=== PATIENT | female | born 1950 | race Caucasian/White ===

== ENCOUNTER 2024-01-27 15:31 | Inpatient (IN) | payer MEDICARE ==
[2024-01-27] MEDS ORDERED: Morphine 4 MG/ML VIAL ONE (15:46)
[2024-01-27 16:02] LABS: #Basophils 0.04 10x3/uL (0.0-0.2); %Basophils 0.5 % (0.0-1.0); %Lymphocytes 20.8 % (21.0-51.0); %Monocytes 8.8 % (0.0-10.0); %Neutrophils 67.4 % (42.0-75.0); Hemoglobin 13.8 g/dL (12.0-16.0); Mean Corpuscular HGB CONC 34.5 g/dL (32.0-36.0); Mean Corpuscular Hemoglobin 31.6 pg (27.0-31.0); Mean Corpuscular Volume 91.5 fL (78.0-98.0); Mean Platelet Volume 12.9 fL (7.4-10.4); Platelet Count 181 10x3/uL (130-400); RBC Distribution Width 12.5 % (11.5-14.5); Red Blood Cell (RBC) Count 4.37 mill/uL (4.20-5.40)
[2024-01-27 16:14] LABS: ALT (SGPT) 21 U/L (8-55); AST (SGOT) 25 U/L (5-34); Albumin 3.6 g/dL (3.4-4.8); Alkaline Phosphatase 45 U/L (40-110); Anion Gap 20 mmol/L (10-20); BUN (Urea Nitrogen) 24 mg/dL (9.8-20.1); Bilirubin, Total 0.3 mg/dL (0.2-1.2); Calc. Creatinine Clearance 0 mL/min (70-130); Calcium 9.7 mg/dL (7.8-10.44); Carbon Dioxide 19 mmol/L (23-31); Chloride 105 mmol/L (98-107); Estimated GFR 52; Glucose 209 mg/dL (83-110); Potassium 4.6 mmol/L (3.5-5.1); Protein, Total 7.6 g/dL (5.8-8.1); Sodium 139 mmol/L (136-145)
[2024-01-27 16:20] LABS: INR-International Normal Ratio 1.1; PTT 27.5 sec (22.9-36.1); Prothrombin Time 14.1 sec (12.0-14.7)
[2024-01-27] MEDS ORDERED: Morphine 2 MG/ML VIAL SLOW IVP PRN (16:22)
[2024-01-27] MEDS ORDERED: Glucagon 1 MG/ML KIT IM PRN (16:22)
[2024-01-27] MEDS ORDERED: Dextrose 50% Abboject 50 ML SYRINGE SLOW IVP PRN (16:22)
[2024-01-27] MEDS ORDERED: Acetaminophen 325 MG TAB PO PRN (16:22)
[2024-01-27] MEDS ORDERED: Dextrose 5% in Water 1,000 ML IV PRN (16:22)
[2024-01-27] MEDS ORDERED: Ondansetron ODT 4 MG TAB PO PRN (16:22)
[2024-01-27] MEDS: Lactated Ringer's 1,000 ML IV SCH (18:01)
[2024-01-27 19:22] VITALS: BMI 30.3
[2024-01-27] MEDS: Insulin Glargine 30 UNITS/0.3 ML VIAL SC SCH (21:34)
[2024-01-27] MEDS: HYDROcodone/Acetaminophen 5/325 mg Tablet PO PRN (21:42)
[2024-01-27] MEDS: hydrALAZINE 20 MG/ML VIAL SLOW IVP PRN (23:42)
[2024-01-28] MEDS: traMADol HCl 50 MG TAB PO PRN (00:36)
[2024-01-28 05:39] LABS: #Basophils 0.04 10x3/uL (0.0-0.2); %Basophils 0.3 % (0.0-1.0); %Eosinophils 0.7 % (0.0-10.0); %Lymphocytes 9.7 % (21.0-51.0); %Monocytes 9.8 % (0.0-10.0); %Neutrophils 79.2 % (42.0-75.0); Hematocrit 36.4 % (36.0-47.0); Hemoglobin 12.1 g/dL (12.0-16.0); Mean Corpuscular HGB CONC 33.2 g/dL (32.0-36.0); Mean Corpuscular Hemoglobin 31.1 pg (27.0-31.0); Mean Corpuscular Volume 93.6 fL (78.0-98.0); Mean Platelet Volume 12.9 fL (7.4-10.4); Platelet Count 175 10x3/uL (130-400); RBC Distribution Width 12.6 % (11.5-14.5); Red Blood Cell (RBC) Count 3.89 mill/uL (4.20-5.40)
[2024-01-28] MEDS: Levothyroxine 150 MCG TAB PO SCH (05:59)
[2024-01-28 06:30] LABS: Anion Gap 14 mmol/L (10-20); BUN (Urea Nitrogen) 23 mg/dL (9.8-20.1); Calc. Creatinine Clearance 45 mL/min (70-130); Calcium 8.9 mg/dL (7.8-10.44); Carbon Dioxide 22 mmol/L (23-31); Chloride 109 mmol/L (98-107); Estimated GFR 42; Glucose 196 mg/dL (83-110); Sodium 141 mmol/L (136-145)
[2024-01-28] MEDS ORDERED: [UNRECOGNIZED DRUG - OTHER] PO SCH (08:00)
[2024-01-28] MEDS ORDERED: METFORMIN HCL PO SCH (08:00)
[2024-01-28] MEDS ORDERED: GLYBURIDE PO SCH (08:00)
[2024-01-28] MEDS: metFORMIN 500 MG TAB PO SCH (08:50)
[2024-01-28] MEDS: Amiodarone 200 MG TAB PO SCH (08:50)
[2024-01-28] MEDS: Ramipril 5 MG CAP PO SCH (08:50)
[2024-01-28] MEDS: Famotidine 20 MG TAB PO SCH (08:50)
[2024-01-28] MEDS: glyBURIDE 5 MG TAB PO SCH (08:50)
[2024-01-28] MEDS: Simethicone Chewable 80 MG TAB PO PRN (12:15)
[2024-01-28] MEDS: Ondansetron PF 4 MG/2 ML Vial IVP PRN (17:50)
[2024-01-28] MEDS: HumaLOG 300 UNITS/3 ML VIAL SC PRN (17:58)
[2024-01-28] MEDS: Lactated Ringer's 1,000 ML IV SCH (21:14)
[2024-01-29 05:31] LABS: #Basophils 0.05 10x3/uL (0.0-0.2); #Eosinphils Less than 0.03 10x3/uL (0.0-0.7); %Basophils 0.2 % (0.0-1.0); %Lymphocytes 4.7 % (21.0-51.0); %Monocytes 5.6 % (0.0-10.0); %Neutrophils 88.4 % (42.0-75.0); Hematocrit 37.6 % (36.0-47.0); Hemoglobin 12.7 g/dL (12.0-16.0); Mean Corpuscular HGB CONC 33.8 g/dL (32.0-36.0); Mean Corpuscular Hemoglobin 31.5 pg (27.0-31.0); Mean Corpuscular Volume 93.3 fL (78.0-98.0); Mean Platelet Volume 13.3 fL (7.4-10.4); Platelet Count 186 10x3/uL (130-400); RBC Distribution Width 13.1 % (11.5-14.5); Red Blood Cell (RBC) Count 4.03 mill/uL (4.20-5.40)
[2024-01-29 05:33] LABS: Anion Gap 17 mmol/L (10-20); BUN (Urea Nitrogen) 28 mg/dL (9.8-20.1); Calc. Creatinine Clearance 35 mL/min (70-130); Calcium 9.4 mg/dL (7.8-10.44); Carbon Dioxide 21 mmol/L (23-31); Chloride 106 mmol/L (98-107); Estimated GFR 30; Glucose 253 mg/dL (83-110); Potassium 4.8 mmol/L (3.5-5.1); Sodium 139 mmol/L (136-145)
[2024-01-29] MEDS: Scopolamine 1 mg/72 hour Patch TD SCH (09:47)
[2024-01-29] MEDS ORDERED: CEFAZOLIN 2 GM in Sodium Chloride 0.9% 100 ML IVPB SCH (11:30)
[2024-01-29] MEDS ORDERED: Ondansetron PF 4 MG/2 ML Vial ONE (12:27)
[2024-01-29] MEDS ORDERED: Dexamethasone 20 MG/5 ML VIAL ONE (12:27)
[2024-01-29] MEDS ORDERED: fentaNYL 50 mcg/mL 1 mL Vial ONE (12:27)
[2024-01-29] MEDS ORDERED: SUGAMMADEX SODIUM 200 MG/2 ML VIAL ONE (12:27)
[2024-01-29] MEDS ORDERED: PROPOFOL 20 ML ONE (12:27)
[2024-01-29] MEDS ORDERED: Lidocaine 1% PF 5 ML VIAL ONE (12:27)
[2024-01-29] MEDS ORDERED: Rocuronium Bromide 10 MG/ML (10ML VIAL) ONE (12:27)
[2024-01-29] MEDS ORDERED: CEFAZOLIN 2 GM VIAL ONE (12:33)
[2024-01-29] MEDS ORDERED: Sodium Chloride 0.9% 100 ML ONE (12:33)
[2024-01-29] MEDS ORDERED: PHENYLEPHRINE-NS 100 MCG/ML 10 ML SYRINGE ONE (13:27)
[2024-01-29] MEDS ORDERED: fentaNYL PF 100 MCG/2 ML SYRINGE ONE ×2 (14:18→14:35)
[2024-01-29] MEDS ORDERED: HYDROmorphone 0.5 MG/0.5 ML SYRINGE ONE (14:35)
[2024-01-29] MEDS ORDERED: Acetaminophen/Codeine 30-300mg Tablet PO PRN (17:12)
[2024-01-29] MEDS: Acetaminophen 325 MG TAB PO SCH (17:33)
[2024-01-29] MEDS: Senokot S 8.6-50 MG TAB PO SCH (20:27)
[2024-01-29] MEDS: CEFAZOLIN 2 GM in Sodium Chloride 0.9% 100 ML IVPB SCH (20:27)
[2024-01-29] MEDS: Lactulose 20 GM (30 mL) UDCUP PO SCH (20:27)
[2024-01-29] MEDS: HumaLOG 300 UNITS/3 ML VIAL SC PRN (22:35)
[2024-01-30 05:21] LABS: #Basophils Less than 0.03 10x3/uL (0.0-0.2); #Eosinphils Less than 0.03 10x3/uL (0.0-0.7); %Basophils 0.1 % (0.0-1.0); %Lymphocytes 3.1 % (21.0-51.0); %Neutrophils 87.8 % (42.0-75.0); Hematocrit 32.4 % (36.0-47.0); Hemoglobin 10.8 g/dL (12.0-16.0); Mean Corpuscular HGB CONC 33.3 g/dL (32.0-36.0); Mean Corpuscular Hemoglobin 31.7 pg (27.0-31.0); Mean Platelet Volume 12.7 fL (7.4-10.4); Platelet Count 186 10x3/uL (130-400); RBC Distribution Width 13.2 % (11.5-14.5); Red Blood Cell (RBC) Count 3.41 mill/uL (4.20-5.40)
[2024-01-30 07:03] LABS: Anion Gap 19 mmol/L (10-20); BUN (Urea Nitrogen) 49 mg/dL (9.8-20.1); Calc. Creatinine Clearance 18 mL/min (70-130); Calcium 8.6 mg/dL (7.8-10.44); Carbon Dioxide 18 mmol/L (23-31); Chloride 103 mmol/L (98-107); Estimated GFR 14; Glucose 399 mg/dL (83-110); Potassium 4.2 mmol/L (3.5-5.1); Sodium 136 mmol/L (136-145)
[2024-01-30] MEDS: Polyethylene Glycol 3350 17 GM Packet PO SCH (10:24)
[2024-01-30] MEDS: Insulin Glargine 30 UNITS/0.3 ML VIAL SC SCH (10:26)
[2024-01-30] MEDS: Sodium Bicarbonate 150 MEQ in Dextrose 5% in Water 1,000 ML IV SCH (12:22)
[2024-01-30] MEDS ORDERED: Glucagon 1 MG/ML KIT IM PRN (16:01)
[2024-01-30] MEDS ORDERED: Dextrose 5% in Water 1,000 ML IV PRN (16:01)
[2024-01-30] MEDS ORDERED: Dextrose 50% Abboject 50 ML SYRINGE SLOW IVP PRN (16:01)
[2024-01-30 19:54] LABS: Bilirubin Negative (Negative); Blood, Urine 2+ (Negative); CAUTI Indications for Culture Alt mental st,lethar; Clarity Turbid (Clear); Glucose, Urine (Dipstick) Greater than 1000 mg/dL (Negative); Ketone, Urine 10 mg/dL (Negative); Leukocyte 500 Leu/uL (Negative); Nitrite Negative (Negative); Protein, Urine (Dipstick) 20 mg/dL (Neg-Trace); RBC/HPF Greater than 50 HPF (0-3); Squamous Epithelial 0-3 HPF (0-3); Urobilinogen Normal mg/dL (Less than 2); WBC/HPF Greater than 50 HPF (0-3); Yeast-Budding 2+ HPF (None Seen); pH, Urine 5.5 (5.0-9.0)
[2024-01-30 19:59] LABS: Bacteria/HPF 1+ HPF (None Seen); Urine Culture Reflex Yes Yes
[2024-01-30] MEDS: HumaLOG 300 UNITS/3 ML VIAL SC PRN (22:06)
[2024-01-31 05:25] LABS: #Basophils Less than 0.03 10x3/uL (0.0-0.2); %Basophils 0.1 % (0.0-1.0); %Eosinophils 0.2 % (0.0-10.0); %Lymphocytes 5.9 % (21.0-51.0); %Monocytes 8.8 % (0.0-10.0); %Neutrophils 83.9 % (42.0-75.0); Hematocrit 31.4 % (36.0-47.0); Hemoglobin 10.4 g/dL (12.0-16.0); Mean Corpuscular HGB CONC 33.1 g/dL (32.0-36.0); Mean Corpuscular Hemoglobin 30.1 pg (27.0-31.0); Platelet Count 173 10x3/uL (130-400); Red Blood Cell (RBC) Count 3.45 mill/uL (4.20-5.40)
[2024-01-31] MEDS: HumaLOG 300 UNITS/3 ML VIAL SC PRN (05:45)
[2024-01-31 06:12] LABS: Anion Gap 15 mmol/L (10-20); BUN (Urea Nitrogen) 63 mg/dL (9.8-20.1); Calc. Creatinine Clearance 12 mL/min (70-130); Calcium 8.2 mg/dL (7.8-10.44); Carbon Dioxide 19 mmol/L (23-31); Chloride 100 mmol/L (98-107); Estimated GFR 9; Glucose 275 mg/dL (83-110); Potassium 4.1 mmol/L (3.5-5.1); Sodium 130 mmol/L (136-145)
[2024-01-31] MEDS ORDERED: DAPAGLIFLOZIN PO SCH (09:00)
[2024-01-31] MEDS: Heparin 5,000 UNITS/ML VIAL SC SCH (10:19)
[2024-01-31] MEDS: Albumin 25% 25 GM (100 mL) BOT IVPB SCH (12:11)
[2024-01-31] MEDS: cefTRIAXone\\ROCEPHIN 1 GM in Sodium Chloride 0.9% 100 ML IVPB SCH (13:55)
[2024-01-31 16:05] LABS: Anion Gap 13 mmol/L (10-20); BUN (Urea Nitrogen) 57 mg/dL (9.8-20.1); Calc. Creatinine Clearance 16 mL/min (70-130); Calcium 8.8 mg/dL (7.8-10.44); Carbon Dioxide 25 mmol/L (23-31); Chloride 103 mmol/L (98-107); Estimated GFR 12; Glucose 409 mg/dL (83-110); Potassium 4.5 mmol/L (3.5-5.1); Sodium 136 mmol/L (136-145)
[2024-01-31] MEDS: HumaLOG 300 UNITS/3 ML VIAL SC SCH (17:09)
[2024-01-31] MEDS: Sodium Chloride 0.9% 1,000 ML IV SCH (18:43)
[2024-01-31 19:42] LABS: Bilirubin Negative (Negative); Blood, Urine 3+ (Negative); CAUTI Indications for Culture Alt mental st,lethar; Clarity Clear (Clear); Glucose, Urine (Dipstick) Greater than 1000 mg/dL (Negative); Ketone, Urine Negative (Negative); Leukocyte 250 Leu/uL (Negative); Nitrite Negative (Negative); Protein, Urine (Dipstick) 20 mg/dL (Neg-Trace); RBC/HPF 21-50 HPF (0-3); Specific Gravity, Urine 1.013 (1.002-1.036); Squamous Epithelial 0-3 HPF (0-3); Urobilinogen Normal mg/dL (Less than 2); WBC/HPF Greater than 50 HPF (0-3); pH, Urine 5.5 (5.0-9.0)
[2024-01-31 19:48] LABS: Urine Culture Reflex Yes Yes
[2024-01-31] MEDS: Insulin Glargine 30 UNITS/0.3 ML VIAL SC SCH (20:35)
[2024-02-01 06:04] LABS: #Basophils Less than 0.03 10x3/uL (0.0-0.2); %Basophils 0.1 % (0.0-1.0); %Monocytes 8.7 % (0.0-10.0); %Neutrophils 76.5 % (42.0-75.0); Hematocrit 26.9 % (36.0-47.0); Hemoglobin 8.9 g/dL (12.0-16.0); Mean Corpuscular HGB CONC 33.1 g/dL (32.0-36.0); Mean Corpuscular Hemoglobin 30.8 pg (27.0-31.0); Mean Corpuscular Volume 93.1 fL (78.0-98.0); Platelet Count 130 10x3/uL (130-400); RBC Distribution Width 12.8 % (11.5-14.5); Red Blood Cell (RBC) Count 2.89 mill/uL (4.20-5.40)
[2024-02-01 06:24] LABS: Anion Gap 11 mmol/L (10-20); BUN (Urea Nitrogen) 33 mg/dL (9.8-20.1); Calc. Creatinine Clearance 53 mL/min (70-130); Carbon Dioxide 27 mmol/L (23-31); Chloride 109 mmol/L (98-107); Estimated GFR 50; Glucose 108 mg/dL (83-110); Potassium 4.5 mmol/L (3.5-5.1); Sodium 142 mmol/L (136-145)
[2024-02-01] MEDS: Apixaban 5 MG TAB PO SCH (09:13)
[2024-02-01] MEDS: Bisacodyl 10 MG SUPP PR SCH (11:48)
[2024-02-01] MEDS: Mineral Oil ENEMA PR SCH (15:52)
[2024-02-01 16:01] VITALS: BMI 30.3
[2024-02-02 05:58] LABS: #Basophils Less than 0.03 10x3/uL (0.0-0.2); %Basophils 0.3 % (0.0-1.0); %Eosinophils 2.6 % (0.0-10.0); %Lymphocytes 12.7 % (21.0-51.0); %Monocytes 10.9 % (0.0-10.0); %Neutrophils 72.4 % (42.0-75.0); Hemoglobin 8.6 g/dL (12.0-16.0); Mean Corpuscular HGB CONC 33.1 g/dL (32.0-36.0); Mean Corpuscular Hemoglobin 31.5 pg (27.0-31.0); Mean Corpuscular Volume 95.2 fL (78.0-98.0); Mean Platelet Volume 12.5 fL (7.4-10.4); Platelet Count 139 10x3/uL (130-400); RBC Distribution Width 12.7 % (11.5-14.5); Red Blood Cell (RBC) Count 2.73 mill/uL (4.20-5.40)
[2024-02-02 06:25] LABS: Anion Gap 11 mmol/L (10-20); BUN (Urea Nitrogen) 19 mg/dL (9.8-20.1); Calc. Creatinine Clearance 86 mL/min (70-130); Calcium 8.4 mg/dL (7.8-10.44); Carbon Dioxide 24 mmol/L (23-31); Chloride 108 mmol/L (98-107); Estimated GFR 91; Glucose 98 mg/dL (83-110); Sodium 139 mmol/L (136-145)
[2024-02-02] MEDS: Amlodipine 10 MG TAB PO SCH (14:05)
[2024-02-02] MEDS: Lisinopril 5 MG TAB PO SCH (20:44)
[2024-02-03 06:58] LABS: #Basophils Less than 0.03 10x3/uL (0.0-0.2); %Basophils 0.2 % (0.0-1.0); %Eosinophils 3.8 % (0.0-10.0); %Lymphocytes 13.8 % (21.0-51.0); %Monocytes 12.3 % (0.0-10.0); %Neutrophils 67.8 % (42.0-75.0); Hemoglobin 9.2 g/dL (12.0-16.0); Mean Corpuscular HGB CONC 32.9 g/dL (32.0-36.0); Mean Corpuscular Hemoglobin 31.4 pg (27.0-31.0); Mean Corpuscular Volume 95.6 fL (78.0-98.0); Platelet Count 184 10x3/uL (130-400); RBC Distribution Width 12.6 % (11.5-14.5); Red Blood Cell (RBC) Count 2.93 mill/uL (4.20-5.40)
[2024-02-03 07:16] LABS: Anion Gap 12 mmol/L (10-20); BUN (Urea Nitrogen) 14 mg/dL (9.8-20.1); Calc. Creatinine Clearance 94 mL/min (70-130); Calcium 8.7 mg/dL (7.8-10.44); Carbon Dioxide 23 mmol/L (23-31); Cardiac Risk 3.5 (Less than 4.5); Chloride 108 mmol/L (98-107); Cholesterol 83 mg/dl (< 200 Desired); Estimated GFR 93; Glucose 116 mg/dL (83-110); HDL Cholesterol 24 mg/dL (>60 Neg Risk); LDL Cholesterol, Calculated 46 mg/dL; Potassium 3.8 mmol/L (3.5-5.1); Sodium 139 mmol/L (136-145); Triglycerides 67 mg/dL (Less than 150)
[2024-02-03] MEDS: Lisinopril 10 MG TAB PO SCH (09:51)
[2024-02-03] MEDS: Amlodipine 5 MG TAB PO SCH (09:51)
[2024-02-03] MEDS: Atorvastatin Calcium 40 MG TAB PO SCH (19:41)
[2024-02-03] MEDS: Ciprofloxacin 500 MG TAB PO SCH (19:41)
[2024-02-04 07:15] LABS: INR-International Normal Ratio 1.2; Prothrombin Time 15.1 sec (12.0-14.7)
[2024-02-04 07:16] LABS: PTT 33.2 sec (22.9-36.1)
[2024-02-04 07:27] LABS: Anion Gap 11 mmol/L (10-20); BUN (Urea Nitrogen) 14 mg/dL (9.8-20.1); Calc. Creatinine Clearance 77 mL/min (70-130); Calcium 8.4 mg/dL (7.8-10.44); Carbon Dioxide 24 mmol/L (23-31); Cardiac Risk 3.2 (Less than 4.5); Chloride 108 mmol/L (98-107); Cholesterol 84 mg/dl (< 200 Desired); Estimated GFR 78; Glucose 139 mg/dL (83-110); HDL Cholesterol 26 mg/dL (>60 Neg Risk); LDL Cholesterol, Calculated 45 mg/dL; Potassium 3.8 mmol/L (3.5-5.1); Sodium 139 mmol/L (136-145); Triglycerides 67 mg/dL (Less than 150)
[2024-02-04] MEDS: Aspirin Chewable 81 MG TAB PO SCH (08:14)
[2024-02-04 08:32] LABS: #Basophils 0.04 10x3/uL (0.0-0.2); %Basophils 0.4 % (0.0-1.0); %Eosinophils 4.1 % (0.0-10.0); %Lymphocytes 9.2 % (21.0-51.0); %Monocytes 10.7 % (0.0-10.0); %Neutrophils 72.2 % (42.0-75.0); Hematocrit 32.2 % (36.0-47.0); Hemoglobin 10.6 g/dL (12.0-16.0); Mean Corpuscular HGB CONC 32.9 g/dL (32.0-36.0); Mean Corpuscular Hemoglobin 30.7 pg (27.0-31.0); Mean Corpuscular Volume 93.3 fL (78.0-98.0); Mean Platelet Volume 11.2 fL (7.4-10.4); Platelet Count 267 10x3/uL (130-400); RBC Distribution Width 12.9 % (11.5-14.5); Red Blood Cell (RBC) Count 3.45 mill/uL (4.20-5.40)
[2024-02-04] MEDS ORDERED: Iopamidol-370 76% 500 ML MDV (1 ML CHARGE) ONE (15:13)
[2024-02-04] MEDS: Enoxaparin 40 MG (0.4 mL) SYRINGE SC SCH (19:40)
[2024-02-05 05:43] LABS: Anion Gap 15 mmol/L (10-20); BUN (Urea Nitrogen) 27 mg/dL (9.8-20.1); Calc. Creatinine Clearance 30 mL/min (70-130); Calcium 8.8 mg/dL (7.8-10.44); Carbon Dioxide 20 mmol/L (23-31); Chloride 106 mmol/L (98-107); Estimated GFR 25; Glucose 163 mg/dL (83-110); Potassium 4.7 mmol/L (3.5-5.1); Sodium 136 mmol/L (136-145)
[2024-02-05] MEDS: Cipro 250 MG TAB PO SCH (06:02)
[2024-02-05] MEDS: Sodium Chloride 0.9% 1,000 ML IV SCH (06:02)
[2024-02-05 11:26] LABS: Syphilis Antibody Nonreactive (Nonreactive); Syphilis Antibody Index 0.07 S/CO (<1.00 Non-Reactive)
[2024-02-05] MEDS: Enoxaparin 30 MG (0.3 mL) SYRINGE SC SCH (21:14)
[2024-02-06 06:04] LABS: #Basophils 0.03 10x3/uL (0.0-0.2); %Basophils 0.3 % (0.0-1.0); %Eosinophils 4.4 % (0.0-10.0); %Lymphocytes 16.5 % (21.0-51.0); %Monocytes 10.9 % (0.0-10.0); %Neutrophils 65.8 % (42.0-75.0); Hematocrit 28.8 % (36.0-47.0); Hemoglobin 9.2 g/dL (12.0-16.0); Mean Corpuscular HGB CONC 31.9 g/dL (32.0-36.0); Mean Corpuscular Hemoglobin 30.5 pg (27.0-31.0); Mean Corpuscular Volume 95.4 fL (78.0-98.0); Mean Platelet Volume 11.6 fL (7.4-10.4); Platelet Count 251 10x3/uL (130-400); RBC Distribution Width 13.2 % (11.5-14.5); Red Blood Cell (RBC) Count 3.02 mill/uL (4.20-5.40)
[2024-02-06 06:35] LABS: Anion Gap 12 mmol/L (10-20); BUN (Urea Nitrogen) 14 mg/dL (9.8-20.1); Calc. Creatinine Clearance 72 mL/min (70-130); Calcium 8.6 mg/dL (7.8-10.44); Carbon Dioxide 22 mmol/L (23-31); Chloride 112 mmol/L (98-107); Estimated GFR 73; Glucose 92 mg/dL (83-110); Potassium 4.4 mmol/L (3.5-5.1); Sodium 142 mmol/L (136-145)
[2024-02-06] MEDS: cloNIDine 0.1 MG TAB PO SCH (18:04)
[2024-02-06] MEDS: Enoxaparin 40 MG (0.4 mL) SYRINGE SC SCH (21:39)
[2024-02-08 13:52] LABS: ANA Symphony (Qualitative) Negative (Negative); ANA Symphony (Quantitative) 0.2 Ratio (< 0.7 Negative); CCP IgG Antibody 1.6 EliAU/mL (<7 Negative); Rheumatoid Factor IgA Antibody 4.4 IU/mL (<14 Negative); Rheumatoid Factor IgM Antibody Less than 0.6 IU/mL (<3.5 Negative); dsDNA IgG Antibody 1.4 IU/mL (<10 Negative)
[2024-02-08 16:29] VITALS: BP 166/67; TEMP 97.9
== END 2024-02-08 19:10 | DRG 480 ==
LOC: ERS 15:31 → SJJU 16:47
PROVIDERS: ADMIT Surgery; ATTEND Surgery
PROC: 0QSB04Z Reposition Right Lower Femur with Internal Fixation Device, Open Approach (ICD-10-PCS; principal; 2024-01-29)
PROC: 30233J1 Transfusion of Nonautologous Serum Albumin into Peripheral Vein, Percutaneous Approach (ICD-10-PCS; 2024-01-31)
PROC: 0HQDXZZ Repair Right Lower Arm Skin, External Approach (ICD-10-PCS; 2024-02-03)
PROC: 0HQBXZZ Repair Right Upper Arm Skin, External Approach (ICD-10-PCS; 2024-02-03)
DX: S72.141A Displaced intertrochanteric fracture of right femur, initial encounter for closed fracture (principal); I63.9 Cerebral infarction, unspecified; D62 Acute posthemorrhagic anemia; E87.1 Hypo-osmolality and hyponatremia; N17.9 Acute kidney failure, unspecified; N39.0 Urinary tract infection, site not specified; B96.20 Unspecified Escherichia coli [E. coli] as the cause of diseases classified elsewhere; E78.5 Hyperlipidemia, unspecified; I48.0 Paroxysmal atrial fibrillation; D72.829 Elevated white blood cell count, unspecified; I12.9 Hypertensive chronic kidney disease with stage 1 through stage 4 chronic kidney disease, or unspecified chronic kidney disease; E11.22 Type 2 diabetes mellitus with diabetic chronic kidney disease; N18.9 Chronic kidney disease, unspecified; W18.30XA Fall on same level, unspecified, initial encounter; K59.00 Constipation, unspecified; Z98.891 History of uterine scar from previous surgery; Z79.01 Long term (current) use of anticoagulants
CPT/HCPCS: 36415; 36416; 70496; 70498; 70551; 71045; 72170; 76770; 80048; 80053; 80061; 81001; 83520; 85025; 85610; 85730; 86038; 86200; 86225; 86780; 87040; 87077; 87086; 87186; 93005; 93010; 93306; 96374; C1713; G0390; J0360; J0696; J1100; J1170; J1644; J1650; J1815; J2270; J2405; J2704; J3010; J3490; J7050; J7070; J7120; P9047; Q9967